=== PATIENT | male | born 1965 | race Caucasian/White ===

== ENCOUNTER 2022-11-26 14:45 | Emergency (ER) | payer BC, SELFPAY ==
[2022-11-26] VITALS (23 sets, daily range): BP systolic 142–148; BP diastolic 80–88; PULSE 0–150; RESP 12–24; TEMP 37.2–39.4; O2SAT 92–97; BMI 39.1
--- NOTE | 2022-11-26 15:00 | ECG_ITS ---
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
--- NOTE | 2022-11-26 15:09 | CT_ITS ---
[address] [address] Patient Name: SHELLY AVILA MRN: [id number] date: 1965 Sex: M Assigned Patient Location: ER Current Patient Location: Accession/Order Number: [id number] Exam Date: 11/26/2022 15:35 Report Date: 11/26/2022 16:03 At the request of: MIKAYLA ASCENCIO Procedure: CT angio abdomen pelvis EXAM: CT angio chest, CT angio abdomen pelvis HISTORY: SOB, CP, fever COMPARISON: None. TECHNIQUE: Axial CT imaging was performed with and without contrast through the chest, abdomen, and pelvis, utilizing CTA protocol. Multiplanar reformats were performed. Dose reduction techniques were achieved by using automated exposure control and/or adjustment of mA and/or kV according to patient size and/or use of iterative reconstruction technique. CHEST FINDINGS: Lungs: No pneumothorax or effusion. There is a 4.4 cm left lower lobe consolidation with air bronchogram, representing pneumonia. Airways: Normal. Mediastinum: No adenopathy. Aorta: No aneurysm. Cardiac: Normal size. No pericardial effusion. Pulmonary vasculature: Normal morphology. Bones: No acute bony abnormality. Axilla: No adenopathy. Thyroid gland: No abnormality demonstrated on provided imaging. Soft tissues: Unremarkable. Additional findings: No acute finding. ABDOMEN AND PELVIS FINDINGS: GI upper: Small hiatal hernia. Liver: Hepatic steatosis. Normal size and contour. Gallbladder: No significant abnormality. No cholelithiasis. Biliary system: No intra or extrahepatic biliary ductal dilatation. Spleen: Normal size. Pancreas: Unremarkable. Adrenal glands: Normal adrenal glands. Kidneys/ureters: Normal contours. No hydronephrosis. No nephrolithiasis or ureterolithiasis. Lymph Nodes: No lymphadenopathy. Small bowel: No wall thickening or dilatation. Colon: No wall thickening or dilatation. There are sigmoid diverticula without evidence of acute diverticulitis. Appendix: No findings of appendicitis. Peritoneal cavity: No free fluid or pneumoperitoneum. Lower : Unremarkable. Bones: No acute bony abnormality. Soft tissues: No acute finding. Additional findings: None. VASCULAR FINDINGS: CTA CHEST: Pulmonary vasculature: Normal morphology. Coronary arteries: No variant anatomy is demonstrated. No significant atherosclerotic disease. Aorta: No aneurysm, occlusion, or dissection. No significant atherosclerotic disease. Atherosclerotic: No significant atherosclerotic disease. Aortic branches: Normal three-vessel configuration.Right subclavian: Widely patent where visualized. Right common carotid: Widely patent where visualized. Left common carotid: Widely patent where visualized. Left subclavian: Widely patent where visualized. CTA ABDOMEN AND PELVIS: Aorta: No aneurysm, dissection, or occlusion. No significant atherosclerotic disease. Right renal artery: Widely patent. Left renal artery: Widely patent. Celiac artery: Widely patent. Superior mesenteric artery: Widely patent. Inferior mesenteric artery: Widely patent. Right: Common iliac artery: Widely patent. Common external artery: Widely patent. Common femoral artery: Widely patent. Internal iliac artery: Widely patent. Left: Common iliac artery: Widely patent. Common external artery: Widely patent. Common femoral artery: Widely patent. Internal iliac artery: Widely patent. IMPRESSION: 1. No evidence of dissection, aneurysm, or occlusion. No acute pulmonary embolism. 2. Left lower lobe pneumonia. 8 weeks posttreatment follow-up with radiograph is recommended to evaluate resolution. 3. Hepatic steatosis. Small hiatal hernia. Electronically authenticated by: CHIDI ALLEN Date: 11/26/2022 16:03
--- NOTE | 2022-11-26 15:09 | CT_ITS ---
[address] [address] Patient Name: SHELLY AVILA MRN: [id number] date: 1965 Sex: M Assigned Patient Location: ER Current Patient Location: Accession/Order Number: [id number] Exam Date: 11/26/2022 15:35 Report Date: 11/26/2022 16:03 At the request of: MIKAYLA ASCENCIO Procedure: CT angio chest EXAM: CT angio chest, CT angio abdomen pelvis HISTORY: SOB, CP, fever COMPARISON: None. TECHNIQUE: Axial CT imaging was performed with and without contrast through the chest, abdomen, and pelvis, utilizing CTA protocol. Multiplanar reformats were performed. Dose reduction techniques were achieved by using automated exposure control and/or adjustment of mA and/or kV according to patient size and/or use of iterative reconstruction technique. CHEST FINDINGS: Lungs: No pneumothorax or effusion. There is a 4.4 cm left lower lobe consolidation with air bronchogram, representing pneumonia. Airways: Normal. Mediastinum: No adenopathy. Aorta: No aneurysm. Cardiac: Normal size. No pericardial effusion. Pulmonary vasculature: Normal morphology. Bones: No acute bony abnormality. Axilla: No adenopathy. Thyroid gland: No abnormality demonstrated on provided imaging. Soft tissues: Unremarkable. Additional findings: No acute finding. ABDOMEN AND PELVIS FINDINGS: GI upper: Small hiatal hernia. Liver: Hepatic steatosis. Normal size and contour. Gallbladder: No significant abnormality. No cholelithiasis. Biliary system: No intra or extrahepatic biliary ductal dilatation. Spleen: Normal size. Pancreas: Unremarkable. Adrenal glands: Normal adrenal glands. Kidneys/ureters: Normal contours. No hydronephrosis. No nephrolithiasis or ureterolithiasis. Lymph Nodes: No lymphadenopathy. Small bowel: No wall thickening or dilatation. Colon: No wall thickening or dilatation. There are sigmoid diverticula without evidence of acute diverticulitis. Appendix: No findings of appendicitis. Peritoneal cavity: No free fluid or pneumoperitoneum. Lower : Unremarkable. Bones: No acute bony abnormality. Soft tissues: No acute finding. Additional findings: None. VASCULAR FINDINGS: CTA CHEST: Pulmonary vasculature: Normal morphology. Coronary arteries: No variant anatomy is demonstrated. No significant atherosclerotic disease. Aorta: No aneurysm, occlusion, or dissection. No significant atherosclerotic disease. Atherosclerotic: No significant atherosclerotic disease. Aortic branches: Normal three-vessel configuration.Right subclavian: Widely patent where visualized. Right common carotid: Widely patent where visualized. Left common carotid: Widely patent where visualized. Left subclavian: Widely patent where visualized. CTA ABDOMEN AND PELVIS: Aorta: No aneurysm, dissection, or occlusion. No significant atherosclerotic disease. Right renal artery: Widely patent. Left renal artery: Widely patent. Celiac artery: Widely patent. Superior mesenteric artery: Widely patent. Inferior mesenteric artery: Widely patent. Right: Common iliac artery: Widely patent. Common external artery: Widely patent. Common femoral artery: Widely patent. Internal iliac artery: Widely patent. Left: Common iliac artery: Widely patent. Common external artery: Widely patent. Common femoral artery: Widely patent. Internal iliac artery: Widely patent. IMPRESSION: 1. No evidence of dissection, aneurysm, or occlusion. No acute pulmonary embolism. 2. Left lower lobe pneumonia. 8 weeks posttreatment follow-up with radiograph is recommended to evaluate resolution. 3. Hepatic steatosis. Small hiatal hernia. Electronically authenticated by: CHIDI ALLEN Date: 11/26/2022 16:03
[2022-11-26] MEDS: HYDROMORPHONE HCL 2 MG/ML VIAL 1 MG IV (15:18)
[2022-11-26] MEDS: ONDANSETRON PF 4 MG/2 ML VIAL IV (15:19)
[2022-11-26] MEDS: ACETAMINOPHEN 500 MG TABLET 1000 MG PO (15:24)
[2022-11-26] MEDS: 0.9 % SODIUM CHLORIDE 1,000 ML 999 ML IV ×2 (15:26→16:45)
[2022-11-26 15:34] LABS: Basophils Absolute Auto 0.1 10^3/uL (0.0-0.1); Basophils Percent Auto 0.7 % (0.2-2.0); Eosinophils Absolute Auto 0.1 10^3/uL (0.0-0.7); Eosinophils Percent Auto 0.7 % (0.9-7.0); Hematocrit 52.4 % (42.0-54.0); Hemoglobin 17.9 g/dL (14.0-18.0); Immature Granulocytes Abs Auto 0.12 10^3/uL (0.00-0.03); Immature Granulocytes Pct Auto 0.9 % (0.0-0.5); Lymphocytes Absolute Auto 0.5 10^3/uL (1.2-3.8); Lymphocytes Percent Auto 3.5 % (20.5-60.0); Mean Corpuscular HGB Conc 34.2 g/dL (29.9-35.2); Mean Corpuscular Hemoglobin 30.7 pg (25.9-34.0); Mean Corpuscular Volume 89.9 fL (80.0-94.0); Monocytes Absolute Auto 0.4 10^3/uL (0.3-0.8); Monocytes Percent Auto 3.1 % (1.7-12.0); Neutrophils Absolute Auto 12.1 10^3/uL (1.4-6.5); Neutrophils Percent Auto 91.1 % (43.0-75.0); Platelet Count 205 10^3/uL (150-450); Red Blood Count 5.83 10^6/uL (4.70-6.10); Red Cell Distribution Width 12.4 % (11.0-15.0); White Blood Count 13.3 10^3/uL (4.0-11.0)
[2022-11-26 15:45] LABS: Alanine Aminotransferase 87 U/L (16-63); Albumin Level 4.2 g/dL (3.4-5.0); Alkaline Phosphatase 82 U/L (46-116); Anion Gap 13.1; Aspartate Amino Transferase 51 U/L (15-37); BUN Creatinine Ratio 9.6; Calcium 9.4 mg/dL (8.5-10.1); Carbon Dioxide 26.6 mmol/L (21.0-32.0); Chloride 100 mmol/L (98-107); Estimated GFR (African America >60 (>=60); Estimated GFR (Non-African Ame >60 (>=60); Globulin 4.4 g/dL; Glucose 134 mg/dL (74-106); Potassium 3.7 mmol/L (3.5-5.1); Sodium 136 mmol/L (136-145); Total Protein 8.6 g/dL (6.4-8.2); Troponin I High Sensitivity 8.4 pg/mL (4.0-76.1)
[2022-11-26 15:52] LABS: Erythrocyte Sedimentation Rate 12 mm/hr (<=20)
[2022-11-26 15:54] LABS: Lactate/Lactic Acid 2.5 mmol/L (0.4-2.0)
[2022-11-26] MEDS: CEFTRIAXONE 1,000 MG in 0.9 % SODIUM CHLORIDE 50 ML 100 MG IV (16:44)
[2022-11-26] MEDS: 0.9 % SODIUM CHLORIDE 500 ML 1000 ML IV (16:45)
[2022-11-26] MEDS: AZITHROMYCIN 500 MG in 0.9 % SODIUM CHLORIDE 250 ML 250 MG IV (16:45)
[2022-11-26 16:58] LABS: PCO2 VBG 36.8 mmHg (40.0-52.0); pH VBG 7.417 (7.330-7.430)
[2022-11-27 11:58] LABS: A. calcoaceticus-baumannii Cpx NOT DETECTED (NOT DETECTE); Bacteroides fragilis NOT DETECTED (NOT DETECTE); CTX-M NOT DETECTED (NOT DETECTE); Candida albicans NOT DETECTED (NOT DETECTE); Candida auris NOT DETECTED (NOT DETECTE); Candida glabrata NOT DETECTED (NOT DETECTE); Candida krusei NOT DETECTED (NOT DETECTE); Candida parapsilosis NOT DETECTED (NOT DETECTE); Candida tropicalis NOT DETECTED (NOT DETECTE); Cryptococcus neoformans/gattii NOT DETECTED (NOT DETECTE); Enterobacter cloacae complex NOT DETECTED (NOT DETECTE); Enterobacterales NOT DETECTED (NOT DETECTE); Enterococcus faecalis NOT DETECTED (NOT DETECTE); Enterococcus faecium NOT DETECTED (NOT DETECTE); Haemophilus influenzae NOT DETECTED (NOT DETECTE); IMP NOT DETECTED (NOT DETECTE); KPC NOT DETECTED (NOT DETECTE); Klebsiella aerogenes NOT DETECTED (NOT DETECTE); Klebsiella pneumoniae group NOT DETECTED (NOT DETECTE); Listeria monocytogenes NOT DETECTED (NOT DETECTE); NDM NOT DETECTED (NOT DETECTE); Neisseria meningitidis NOT DETECTED (NOT DETECTE); OXA-48-like NOT DETECTED (NOT DETECTE); Proteus spp. NOT DETECTED (NOT DETECTE); Pseudomonas aeruginosa NOT DETECTED (NOT DETECTE); Salmonella spp. NOT DETECTED (NOT DETECTE); Serratia marcescens NOT DETECTED (NOT DETECTE); Staphylococcus lugdunensis NOT DETECTED (NOT DETECTE); Stenotrophomonas maltophilia NOT DETECTED (NOT DETECTE); Streptococcus agalactiae NOT DETECTED (NOT DETECTE); Streptococcus pneumoniae NOT DETECTED (NOT DETECTE); Streptococcus pyogenes NOT DETECTED (NOT DETECTE); Streptococcus spp. NOT DETECTED (NOT DETECTE); VIM NOT DETECTED (NOT DETECTE); mcr-1 NOT DETECTED (NOT DETECTE); mecA/C and MREJ (MRSA) NOT DETECTED (NOT DETECTE); vanA/B NOT DETECTED (NOT DETECTE)
[2022-11-27 14:44] LABS: mecA/C DETECTED (NOT DETECTE)
[2022-11-27 14:47] LABS: Staphylococcus epidermidis DETECTED (NOT DETECTE); Staphylococcus spp. DETECTED (NOT DETECTE)
--- NOTE | 2022-11-27 15:00 | PC.NURSE ---
Dr Saavedra notified of positive blood culture that this RN took from [place] in lab. Positive staph epi in aerobic bottle. This RN looked up discharge and notified Dr Saavedra of antibiotics pt was discharged with . No further orders were given .
== END 2022-11-26 18:08 | disposition home or self-care (01) ==
PROVIDERS: Nurse Practitioner Family; Emergency Provider Emergency Medicine; Family Provider Emergency Medicine Hospice and Palliative Medicine; PCP Emergency Medicine Hospice and Palliative Medicine
DX: J18.9 Pneumonia, unspecified organism (principal); M54.9 Dorsalgia, unspecified; Z96.659 Presence of unspecified artificial knee joint; Z79.899 Other long term (current) drug therapy
CPT/HCPCS: 36415; 71275; 74174; 80053; 81003; 82800; 83605; 83690; 84484; 85025; 85652; 87040; 87150; 87186; 93005; 96374; 96375; 99285; J0456; J1170; Q9967

== ENCOUNTER 2024-04-05 10:35 | Emergency (ER) | payer BC, SELFPAY ==
[2024-04-05] VITALS (18 sets, daily range): BP systolic 123–157; BP diastolic 73–101; PULSE 84–108; TEMP 36.7; O2SAT 97–100
--- NOTE | 2024-04-05 10:50 | ECG_ITS ---
[facility] Test Date: 2024-04-05 Pat Name: SHELLY AVILA Department: Room: - Gender: Male [employer]: : 1965 Requested By: [id number] Order Number: [id number] Reading MD: CHIDI OGLESBY Measurements Intervals [place] Rate: 86 P: 83 KS: 136 QRS: 55 QRSD: 94 T: 64 QT: 354 QTc: 397 Interpretive Statements 1100 Sinus rhythm 4068 Nonspecific [place] abnormality 9130 borderline ECG Electronically Signed On 04-05-2024 15:09:41 EDT by CHIDI OGLESBY
--- NOTE | 2024-04-05 10:54 | ED.ABDPAIN1 ---
HPI - Abdominal Pain General Chief Complaint: Abdominal Pain Stated Complaint: ABDOMINAL PAIN Time Seen by Provider: 04/05/24 10:50 Source: patient and family Mode of arrival: walk-in Limitations: no limitations History of Present Illness HPI narrative: The patient is 59 years old male with a history of thyroid cancer got treated in 2022 , is coming with a right upper quadrant pain that started this morning, he was awake already when the pain started it is severe enough radiating except that he feels that sometimes the pain goes to his back Associated with nausea and vomiting and sweating and the patient is in distress upon arrival No constipation Related Data Home Medications ?Medication ?Instructions ?Recorded ?Confirmed No Known Home Medications 04/05/24 04/05/24 Allergies Allergy/AdvReac Type Severity Reaction Status Date / Time No Known Drug Allergies Allergy Verified 04/05/24 10:47 Review of Systems ROS Status of ROS 10 or more systems reviewed and unremarkable except as noted in history and below PFSH PFSH Social History Little interest or pleasure in doing things: not at all Feeling down, depressed, or hopeless: not at all Exam Narrative Exam Narrative: Nurses notes and vital signs reviewed and patient is not hypoxic. General: Well-appearing and in no apparent distress. Skin: Warm, dry, no pallor noted. No rash. Head: Normocephalic, atraumatic. Neck: Supple, non-tender. Eye: Pupils are equal, round and EOMI. No scleral icterus. Ears, Nose, Mouth, and Throat: TM are clear, no nasal mucosal hypertrophy. Oral mucosa is moist, no posterior oropharynx erythema, uvula is mid-line Cardiovascular: Regular Rate and Rhythm without murmur, gallop or rub. Respiratory: No accessory muscle use or respiratory distress. Lungs are clear to auscultation, no wheezing, rales or rhonchi Chest Wall: no tenderness Back: No midline thoracic or lumbar vertebral tenderness. Musculoskeletal: normal ROM, no calf or popliteal tenderness, no lower extremity edema/swelling GI: Abdomen is soft, right right upper quadrant pain and right CVA tenderness Neurological: A&O x4. No cranial nerve dysfunction observed. No truncal ataxia. Moves all extremities. Sensation intact. Psychiatric: Cooperative and interactive. Normal mood and affect. Constitutional Vital Signs, click to edit/add: Last Vital Signs Temp 98.0 F 04/05/24 10:55 Pulse 97 H 04/05/24 13:50 Resp 12 04/05/24 13:50 BP 130/89 04/05/24 13:30 Pulse Ox 100 04/05/24 11:54 O2 Del Method Room Air 04/05/24 10:41 Course Vital Signs Vital signs: Vital Signs Pulse Rate 95 H 04/05/24 10:41 Respiratory Rate 24 H 04/05/24 10:41 Blood Pressure 124/73 04/05/24 10:41 Pulse Oximetry 98 04/05/24 10:41 Oxygen Delivery Method Room Air 04/05/24 10:41 Temperature 98.0 F 04/05/24 10:55 Pulse Rate 97 H 04/05/24 13:50 Respiratory Rate 12 04/05/24 13:50 Blood Pressure 130/89 04/05/24 13:30 Pulse Oximetry 100 04/05/24 11:54 Oxygen Delivery Method Room Air 04/05/24 10:41 MDM - Abdominal Pain MDM Narrative Medical decision making narrative: The patient EKG showing sinus rhythm with a heart rate of [address] elevation or depression CBC showed leukocytosis and the lactic acid was elevated the patient was starting sepsis protocol covered initially with ciprofloxacin and ceftriaxone due to concern for kidney stone The patient lipase was mildly elevated but the rest of the chemistry showed no acute significant pathology except for the elevated lactic acid The patient was started on Septra physical IV fluid as well and the CAT scan of the abdomen pelvis without contrast shows a possible pancreatic mass versus duodenal mass and the patient have thickened wall of the gallbladder The patient case was discussed with Dr. Mcgregor and he agreed that the patient need to be transferred for further evaluation of the pathology detected at the pancreatic area The patient covered initially with morphine for pain and then Dilaudid The patient will be transferred to [facility] he was accepted by general surgery Dr. Laguerre and by the ER Dr. Fernandez Lab Data Labs: Lab Results 04/05/24 Range/Units 10:50 WBC 16.4 H (4.0-11.0) 10^3/uL RBC 5.02 (4.70-6.10) 10^6/uL Hgb 15.5 (14.0-18.0) g/dL Hct 46.5 (42.0-54.0) % MCV 92.6 (80.0-94.0) fL MCH 30.9 (25.9-34.0) pg MCHC 33.3 (29.9-35.2) g/dL RDW 12.3 (11.0-15.0) % Plt Count 255 (150-450) 10^3/uL MPV 9.9 (9.5-13.5) fL Neut % (Auto) 89.1 H (43.0-75.0) % Lymph % (Auto) 4.3 L (20.5-60.0) % [place] % (Auto) 5.2 (1.7-12.0) % Eos % (Auto) 0.3 L (0.9-7.0) % Baso % (Auto) 0.6 (0.2-2.0) % Neut # (Auto) 14.6 H (1.4-6.5) 10^3/uL Lymph # (Auto) 0.7 L (1.2-3.8) 10^3/uL [place] # (Auto) 0.9 H (0.3-0.8) 10^3/uL Eos # (Auto) 0.1 (0.0-0.7) 10^3/uL Baso # (Auto) 0.1 (0.0-0.1) 10^3/uL Abs Immat Gran (auto) 0.09 H (0.00-0.03) 10^3/uL Imm/Tot Granulo (auto) 0.5 (0.0-0.5) % PT 11.1 (9.0-11.6) sec INR 1.05 Sodium 144 (136-145) mmol/L Potassium 3.6 (3.5-5.1) mmol/L Chloride 104 (98-107) mmol/L Carbon Dioxide 24.5 (21.0-32.0) mmol/L Anion Gap 19.1 BUN 18.0 (7.0-18.0) mg/dL Creatinine 1.17 (0.70-1.30) mg/dL Est GFR ( Amer) >60 (>=60 mL/min/1.73m^2) Est GFR (Non-Af Amer) >60 (>=60 mL/min/1.73m^2) BUN/Creatinine Ratio 15.4 Glucose 191 H (74-106) mg/dL Lactate 4.9 H* (0.4-2.0) mmol/L Calcium 9.6 (8.5-10.1) mg/dL Total Bilirubin 0.8 (0.2-1.0) mg/dL AST 25 (15-37) U/L ALT 23 (16-63) U/L Alkaline Phosphatase 65 (46-116) U/L Troponin I High Sens 4.8 (4.0-76.1) pg/mL Total Protein 7.2 (6.4-8.2) g/dL Albumin 3.9 (3.4-5.0) g/dL Globulin 3.3 g/dL Albumin/Globulin Ratio 1.2 Lipase 122.0 H (16.0-77.0) U/L Discharge Plan Discharge Chief Complaint: Abdominal Pain Clinical Impression: Acute pancreatitis, Sepsis, Pancreatic abnormality Patient Disposition: [facility] Time of Disposition Decision: 14:17 Condition: Good
--- NOTE | 2024-04-05 10:55 | CT_ITS ---
[address] [address] Patient Name: SHELLY AVILA MRN: [id number] date: 1965 Sex: M Assigned Patient Location: ER Current Patient Location: Accession/Order Number: [id number] Exam Date: 04/05/2024 11:18 Report Date: 04/05/2024 12:08 At the request of: BARRY SENA Procedure: CT abdomen pelvis wo con EXAMINATION: CT abdomen pelvis wo con HISTORY: right flank pain , nausea, vomiting, diarrhea COMPARISON: CT abdomen pelvis 11/26/2022 TECHNIQUE: Axial, Coronal, and Sagittal images were obtained without and/or with IV contrast as indicated by examination type. Dose reduction techniques were achieved by using automated exposure control and/or adjustment of mA and/or kV according to patient size and/or use of iterative reconstruction technique. FINDINGS: LUNG BASES: No visible pulmonary or pleural disease. LIVER: No enlargement, atrophy, suspicious density, or significant focal lesion. BILIARY: Well-distended with ill-defined velez; very thin velez versus thickened velez. PANCREAS: Head of pancreas appears displaced anteriorly by the mass. SPLEEN: No enlargement or focal lesion. ADRENALS: No mass or enlargement. KIDNEYS: No mass, obstruction, or calcification. BOWEL/MESENTERY: Gastric antrum and first portion of the duodenum are not well defined and are partially obscured by a 8.3 x 7.6 x 5.2 cm soft tissue mass. Marked wall thickening and edema involving the third and fourth portions of the duodenum. Free fluid within right paracolic gutter. Prominent edema and stranding extending into the root of the mesentery. Numerous tiny nodules within this area of edema; edematous changes versus soft tissue/neoplasm. Diverticulosis of the distal colon. Free fluid within the pelvic cul-de-sac. AORTA/VASCULAR: No aneurysm or dissection. RETROPERITONEUM: No mass or adenopathy. LYMPH NODES: No adenopathy. URINARY BLADDER: No visible focal wall thickening, lesion, or calculus. PELVIC ORGANS: No visible mass. Pelvic organs appropriate for patient age. ABDOMINAL WALL: No mass or hernia. BONES: No bony lesion or fracture. OTHER: Negative. CT/CT abdomen pelvis wo con IMPRESSION: 1. Nonspecific 8.3 cm mass within right upper quadrant of uncertain origin; head of pancreas versus stomach versus duodenal. Free fluid and edema within the root of mesentery, right upper quadrant, and markedly edematous appearance of the duodenum likely secondary findings to the mass. No bowel obstruction. 2. Marked pancreatitis cannot be completely excluded although the body and tail are unremarkable. Correlate with lab values. 3. Enlarged gallbladder with possible wall thickening, although this is not well-defined on today's study. 4. CT imaging of the abdomen and pelvis with IV and oral contrast is recommended for further evaluation. Electronically authenticated by: SIMON MAHONEY Date: 04/05/2024 12:08
[2024-04-05 10:57] LABS: Basophils Absolute Auto 0.1 10^3/uL (0.0-0.1); Basophils Percent Auto 0.6 % (0.2-2.0); Eosinophils Absolute Auto 0.1 10^3/uL (0.0-0.7); Eosinophils Percent Auto 0.3 % (0.9-7.0); Hematocrit 46.5 % (42.0-54.0); Hemoglobin 15.5 g/dL (14.0-18.0); Immature Granulocytes Abs Auto 0.09 10^3/uL (0.00-0.03); Immature Granulocytes Pct Auto 0.5 % (0.0-0.5); Lymphocytes Absolute Auto 0.7 10^3/uL (1.2-3.8); Lymphocytes Percent Auto 4.3 % (20.5-60.0); Mean Corpuscular HGB Conc 33.3 g/dL (29.9-35.2); Mean Corpuscular Hemoglobin 30.9 pg (25.9-34.0); Mean Corpuscular Volume 92.6 fL (80.0-94.0); Mean Platelet Volume 9.9 fL (9.5-13.5); Monocytes Absolute Auto 0.9 10^3/uL (0.3-0.8); Monocytes Percent Auto 5.2 % (1.7-12.0); Neutrophils Absolute Auto 14.6 10^3/uL (1.4-6.5); Neutrophils Percent Auto 89.1 % (43.0-75.0); Platelet Count 255 10^3/uL (150-450); Red Blood Count 5.02 10^6/uL (4.70-6.10); Red Cell Distribution Width 12.3 % (11.0-15.0); White Blood Count 16.4 10^3/uL (4.0-11.0)
[2024-04-05] MEDS: 0.9 % SODIUM CHLORIDE 1,000 ML 1000 ML IV (11:03)
[2024-04-05] MEDS: KETOROLAC TROMETHAMINE 30 MG/ML VIAL 15 MG IVP (11:04)
[2024-04-05] MEDS: FAMOTIDINE/PF 20 MG/2 ML VIAL IV (11:04)
[2024-04-05] MEDS: ONDANSETRON PF 4 MG/2 ML VIAL IV (11:04)
[2024-04-05 11:11] LABS: INR 1.05; Prothrombin Time 11.1 sec (9.0-11.6)
[2024-04-05 11:13] LABS: Alanine Aminotransferase 23 U/L (16-63); Albumin Globulin Ratio 1.2; Albumin Level 3.9 g/dL (3.4-5.0); Alkaline Phosphatase 65 U/L (46-116); Anion Gap 19.1; Aspartate Amino Transferase 25 U/L (15-37); BUN Creatinine Ratio 15.4; Bilirubin Total 0.8 mg/dL (0.2-1.0); Calcium 9.6 mg/dL (8.5-10.1); Carbon Dioxide 24.5 mmol/L (21.0-32.0); Chloride 104 mmol/L (98-107); Estimated GFR (African America >60 (>=60 mL/min/1.73m^2); Estimated GFR (Non-African Ame >60 (>=60 mL/min/1.73m^2); Globulin 3.3 g/dL; Glucose 191 mg/dL (74-106); Potassium 3.6 mmol/L (3.5-5.1); Sodium 144 mmol/L (136-145); Total Protein 7.2 g/dL (6.4-8.2)
[2024-04-05 11:16] LABS: Troponin I High Sensitivity 4.8 pg/mL (4.0-76.1)
[2024-04-05 11:21] LABS: Lactate/Lactic Acid 4.9 mmol/L (0.4-2.0)
[2024-04-05] MEDS: MORPHINE SULFATE 4 MG/ML VIAL IV (11:50)
[2024-04-05] MEDS: 0.9 % SODIUM CHLORIDE 2,259 ML 753 ML IV (12:03)
[2024-04-05] MEDS: CEFTRIAXONE 1,000 MG in 0.9 % SODIUM CHLORIDE 50 ML 100 MG IV (12:16)
[2024-04-05] MEDS: CIPROFLOXACIN IN 5 % DEXTROSE 400 MG/200 ML PREMIX 200 MG IV (12:54)
[2024-04-05] MEDS: HYDROMORPHONE HCL 1 MG/ML CARTRIDGE IV (13:49)
[2024-04-05] MEDS: PIPERACILLIN SODIUM/TAZOBACTAM 4.5 GM in 0.9 % SODIUM CHLORIDE 50 ML IV (14:00)
[2024-04-05 14:57] LABS: Lactate/Lactic Acid 3.9 mmol/L (0.4-2.0)
== END 2024-04-05 15:23 | disposition short-term general hospital (02) ==
PROVIDERS: Emergency Provider Emergency Medicine; Family Provider Emergency Medicine Hospice and Palliative Medicine; PCP Emergency Medicine Hospice and Palliative Medicine
DX: A41.9 Sepsis, unspecified organism (principal); K85.90 Acute pancreatitis without necrosis or infection, unspecified; K86.9 Disease of pancreas, unspecified; Z85.850 Personal history of malignant neoplasm of thyroid
CPT/HCPCS: 36415; 74176; 80053; 83605; 83690; 84484; 85025; 85610; 87040; 93005; 96365; 96367; 96375; 99285; J0696; J0744; J1171; J1885; J2270; J2405; J2543